=== PATIENT | male | born 2000 | race Two or more races ===

== ENCOUNTER 2025-07-05 17:03 | Emergency (ER) | payer OTHER ==
[~2025-07-05] VITALS: Ht 175.3 cm; Wt 127.2 kg
--- NOTE | 2025-07-05 18:46 | ED.PDOC ---
History of Present Illness HPI Comments 25 y/o morbidly obese M presents with c/c multiple insect bite wounds to his bilateral arms and legs. Patient endorses on 2x day history of bite harris that are diffused across his extremities. Recently, found a tick in his home. Denies any fever, chills, itchiness, or further associated symptoms. Chief Complaint: Insect Bite Time Seen by MD: 18:05 Reviewed Notes: Nurses Notes, Allergies Allergies: Coded Allergies: NO KNOWN ALLERGIES (Unverified , 07/05/25) Information Source: Patient Mode of Arrival: Ambulatory Past Medical History PAST MEDICAL HISTORY: Denies Surgical History: Denies all surgeries Social History Smoker: Non-Smoker Alcohol: Denies ETOH Use Drugs: Denies Drug Use Lives In: Home All Other Systems: Reviewed and Negative (As per HPI) Physical Exam General Appearance: No Apparent Distress, Obese HEENT: Normal ENT Inspection, Pharynx Normal, TMs Normal Neck: Full Range of Motion, Non-Tender, Normal, Normal Inspection Respiratory: Chest Non-Tender, Lungs Clear, No Accessory Muscle Use, No Respiratory Distress, Normal Breath Sounds Cardiovascular: No Edema, No JVD, No Murmur, No Gallop, Normal Peripheral Pulses, Regular Rate/Rhythm Breast Exam: Deferred Gastrointestinal: No Organomegaly, Non Tender, No Pulsatile Mass, Normal Bowel Sounds, Soft Genitalia: Deferred Pelvic: Deferred Rectal: Deferred Extremities: No calf tenderness, Normal capillary refill, Normal range of motion, Non-tender, No pedal edema, Other (small papular and mild erythematous and blanching flank bites to bilateral upper and lower extremities without target lesions) Musculoskeletal : Apperance: Normal Neurologic: Alert, residence life coordinator II-XII nml as Tested, No Motor Deficits, Normal Affect, Normal Mood, No Sensory Deficits Cerebellar Function: Normal Reflexes: Normal Skin: Dry, Normal Color, Warm, Other (small papular and mild erythematous and blanching flank bites to bilateral upper and lower extremities without target lesions) Lymphatic: No Adenopathy Was a procedure done? Was a procedure done?: No Differential Dx Considerations may include: insect bite/envenomation, angioedema, tick bite, lyme disease X-Ray, Labs, Meds, VS Vital Signs Date Time Temp Pulse Resp B/P (MAP) Pulse Ox O2 Delivery O2 Flow Rate FiO2 07/05/25 17:04 98.9 98 16 150/90 80 98.9 Time of 1ST Reevaluation: 18:35 Reevaluation 1ST: Improved Patient Education/Counseling: Diagnosis, Treatment, Need For Follow Up Family Education/Counseling: No Family Present Comments pt appers to have mosquitoe or flee bites, with the small papules and the wide distribution, but since hew found tick in his house, i will start him on doxy Additional Information The following tests were ordered, and results were reviewed by me: N/A Additional Information was gathered from interviewing the following independent historians: N/A I reviewed and agreed with the following test results read by other providers: N/A I discussed treatment and results with medical personnel and: patient SEPSIS Sepsis Screen Date sepsis recognized/suspect: Jul 05, 2025 Time Sepsis recognized/suspect: 1703 Recent Procedure: No On Antibiotic Therapy: No Respiratory Rate >20: No Heart Rate >90: No Temp<36 C (96.8 F) or >38.3 C: No SBP <90 or MAP <65 mmHG: No New Acute Mental Status Change: No Is the patient on CPAP, BIPAP,: No Vital Signs Date Time Temp Pulse Resp B/P (MAP) Pulse Ox O2 Delivery O2 Flow Rate FiO2 07/05/25 17:04 98.9 98 16 150/90 80 98.9 Departure 1 Departure Time of Disposition: 18:54 Impression: Primary Impression: Insect bite Qualified Codes: W57.XXXA - Bitten or stung by nonvenomous insect and other nonvenomous arthropods, initial encounter Disposition: HOME / SELF CARE / HOMELESS Condition: Good e-Prescriptions Doxycycline Hyclate (DOXYCYCLINE HYCLATE) 100 Mg Tab 1 TAB PO BID, #14 TAB Prov: WILMER PATTERSON MD 07/05/25 Discharged With: Self Critical Care Note Critical Care Time?: No Stability Stability form required: No Heart Score Heart Score: Heart Score Response (Comments) Value History N/A 0 EKG N/A 0 Age N/A 0 Risk Factors N/A 0 Troponin N/A 0 Total 0 I personally scribed for WILMER PATTERSON MD ([email or web address]) on 07/05/25 at 18:46. Electronically submitted by Silver Hinton ([email or web address]). WILMER PATTERSON MD Jul 05, 2025 18:46
[2025-07-05] MEDS ORDERED: DOXY-286 PO (18:55)
[2025-07-05 20:13] VITALS: BP 129/79; PULSE 72; RESP 18; TEMP 99.3; O2SAT 98
== END 2025-07-05 20:13 | disposition home or self-care (01) ==
LOC: ER 17:06
DX: S40.862A Insect bite (nonvenomous) of left upper arm, initial encounter (principal); S40.861A Insect bite (nonvenomous) of right upper arm, initial encounter; W57.XXXA Bitten or stung by nonvenomous insect and other nonvenomous arthropods, initial encounter; Y93.89 Activity, other specified; Y92.89 Other specified places as the place of occurrence of the external cause; Y99.8 Other external cause status